=== PATIENT | female | born 1955 | race Caucasian/White ===

== ENCOUNTER 2023-05-14 15:00 | Outpatient (CLI) | payer MEDICARE, OTHER | END 2023-05-14 23:59 | disposition home or self-care (01) | LOC: LAB.S 15:00 | PROVIDERS: ATTEND Nurse Practitioner | DX: N39.0 Urinary tract infection, site not specified (principal) | CPT/HCPCS: 87086 ==

== ENCOUNTER 2023-06-04 10:56 | Outpatient (CLI) | payer MEDICARE, OTHER ==
[2023-06-04 15:13] LABS: BASOPHILS # (AUTO) 0.1 10^3/uL (0.0-0.1); BASOPHILS % (AUTO) 0.9 %; EOSINOPHILS # (AUTO) 0.3 10^3/uL (0.0-0.7); EOSINOPHILS % (AUTO) 4.4 %; HCT - HEMATOCRIT 41.3 % (37.0-47.0); HGB - HEMOGLOBIN 12.9 g/dL (12.0-16.0); LYMPHOCYTES # (AUTO) 1.7 10^3/uL (1.5-3.5); MEAN CORPUSCULAR HEMOGLOBIN 28.9 pg (27.0-31.0); MEAN CORPUSCULAR HGB CONC 31.2 g/dL (32.0-36.0); MEAN CORPUSCULAR VOLUME 92.4 fL (81.0-99.0); MEAN PLATELET VOLUME 10.6 fL (7.9-10.8); MONOCYTES # (AUTO) 0.5 10^3/uL (0.0-1.0); MONOCYTES % (AUTO) 7.1 %; NEUTROPHILS # (AUTO) 4.5 10^3/uL (1.5-6.6); NEUTROPHILS % (AUTO) 63.5 %; PLT - PLATELET COUNT 246 10^3/uL (130-450); RED BLOOD COUNT 4.47 10^6/uL (4.20-5.40); RED CELL DISTRIBUTION WIDTH 13.4 % (12.0-15.0)
[2023-06-04 15:24] LABS: ALBUMIN 4.3 g/dL (3.2-5.5); ALBUMIN/GLOBULIN RATIO 1.5 (1.0-2.2); ALKALINE PHOSPHATASE 66 IU/L (42-121); ALT ALANINE AMINOTRANSFERASE 20 IU/L (10-60); AST ASPARTATE AMINOTRANSFERASE 18 IU/L (10-42); BILIRUBIN,TOTAL 0.5 mg/dL (0.2-1.0); BUN - BLOOD UREA NITROGEN 19 mg/dL (6-20); CALCIUM 9.8 mg/dL (8.5-10.3); CARBON DIOXIDE - CO2 29 mmol/L (21-32); CHLORIDE 106 mmol/L (101-111); CHOL/HDL RATIO 3.2 (<4.4); CHOLESTEROL 204 mg/dL; CREATININE 0.7 mg/dL (0.6-1.3); GFR - MDRD 83 (>89); GLUCOSE 100 mg/dL (74-104); HDL CHOLESTEROL 63 mg/dL; LDL CHOLESTEROL,CALCULATED 118 mg/dL; LDL/HDL RATIO 1.9 (<4.4); POTASSIUM 4.2 mmol/L (3.5-4.5); SODIUM 140 mmol/L (135-145); TOTAL PROTEIN 7.1 g/dL (6.4-8.9); TRIGLYCERIDES 114 mg/dL (48-352); VLDL CHOLESTEROL 23 mg/dL
[2023-06-04 15:31] LABS: THYROID STIMULATING HORMONE 1.61 uIU/mL (0.34-5.60)
[2023-06-04 18:22] LABS: ESTIMATED AVERAGE GLUCOSE 108 mg/dL (70-100); HEMOGLOBIN A1c% 5.4 % (4.27-6.07)
== END 2023-06-04 10:57 | disposition home or self-care (01) ==
LOC: LAB.S 10:56
PROVIDERS: ATTEND Physician Assistant Medical
DX: E78.00 Pure hypercholesterolemia, unspecified (principal); Z13.9 Encounter for screening, unspecified
CPT/HCPCS: 36415; 80053; 80061; 83036; 83721; 84443; 85025

== ENCOUNTER 2023-06-22 13:44 | Outpatient (CLI) | payer MEDICARE, OTHER ==
--- NOTE | 2023-06-25 11:10 | CT Report ---
PROCEDURE: Lung Cancer Screen INDICATIONS: SMOKER TECHNIQUE: A CT scan of the chest was performed. Intravenous contrast media was not administered. Images were re corded and evaluated at appropriate window settings. Reformats: axial MIP of the chest, coronal and s agittal. For radiation dose reduction, the following was used: automated exposure control, adjustment of mA and/or kV according to patient size. COMPARISON: None. FINDINGS: Image quality: Excellent. Prior cancer history: Unknown Lungs and pleura: No pleural effusions. No pneumothorax. There is a single linear subpleural nodule in the right middle lobe measuring 5 mm, 3/149. No other suspicious nodules, masses, or consolidation s. Moderate central bilateral bronchial wall thickening and airway narrowing. Mediastinum: Heart size is mildly enlarged with mild to moderate coronary artery calcification. No pe ricardial effusion. No large vessel abnormality. No mediastinal adenopathy by size criteria. No ante rior or posterior mediastinal mass. Normal esophagus without hiatal hernia Chest wall and lower neck: Thyroid is unremarkable. No axillary or supraclavicular adenopathy by size . Bones: No aggressive osseous abnormality. Upper Abdomen: Unremarkable. IMPRESSION: Lung RAD: 2 - Benign. Recommendation: Continue annual screening in 12 Months with LDCT Non-Lung Significant Findings: None. Bronchial wall thickening and airway narrowing suggesting chronic bronchitis. Reviewed by: Alyse Koch MD on 06/25/2023 11:09 AM PST Approved by: Alyse Koch MD on 06/25/2023 11:09 AM PST Station ID: [id number]
== END 2023-06-22 13:45 | disposition home or self-care (01) ==
LOC: DI 13:44
PROVIDERS: ATTEND Physician Assistant Medical
DX: Z12.2 Encounter for screening for malignant neoplasm of respiratory organs (principal); F17.210 Nicotine dependence, cigarettes, uncomplicated; R91.1 Solitary pulmonary nodule; R91.8 Other nonspecific abnormal finding of lung field

== ENCOUNTER 2023-06-22 13:46 | Outpatient (CLI) | payer MEDICARE, OTHER ==
[2023-06-22] MEDS ORDERED: iohexoL-300 100 ML VIAL IVP ONE (16:44)
--- NOTE | 2023-06-25 11:17 | CT Report ---
PROCEDURE: Abdomen/Pelvis W INDICATIONS: GASTROINTESTINAL STROMAL TUMOR CONTRAST: Omni 300 100ml TECHNIQUE: After the administration of intravenous contrast, a CT scan of the abdomen and pelvis was performed. Images were recorded and evaluated at appropriate window settings. Reformats: coronal and sagittal. F or radiation dose reduction, the following was used: automated exposure control, adjustment of mA and /or kV according to patient size. COMPARISON: None. FINDINGS: Image quality: Excellent. Lung bases and heart: Dictated separately Liver: Mild hepatic steatosis. No solid mass. Gallbladder and biliary tree: decompressed gallbladder. Nondilated biliary tree. Spleen: No splenomegaly. Pancreas: No pancreatic ductal dilation. Adrenals: No adrenal nodule. Kidneys and ureters: Symmetric enhancement. There is an indeterminant cystic lesion anteriorly in the midpole right kidney and a simple appearing cyst arising from the upper pole. No nephrolithiasis or hydronephrosis. Bowel and peritoneum: Stomach and small bowel loops are predominantly decompressed. There is an anast omosis in the left lower quadrant. Extensive colonic diverticulosis from the mid transverse through s igmoid colon. No suspicious wall thickening. Lymph nodes: No central or retroperitoneal adenopathy. Vessels: No infrarenal aortic aneurysm. PELVIS Reproductive organs: The anteverted uterus has a normal CT appearance. Ovaries are not well seen on C T. Bladder: No abnormal wall thickening, accounting for underdistention. Pelvic lymph nodes: There are several bilateral borderline pelvic sidewall and external iliac chain l ymph nodes, all of which maintain normal fatty elizabeth. No bulky or rounded adenopathy. Bones: No aggressive osseous abnormality. Other: No significant ventral or inguinal hernia. IMPRESSION: 1. Left abdominal small bowel anastomosis, presumably site of tumor resection. 2. No evidence of metastatic disease seen in the abdomen or pelvis. 3. Borderline bilateral pelvic lymph nodes, most likely reactive. Recommend attention on follow-up. 4. Incidental note of extensive colonic diverticulosis. 5. Indeterminant right mid pole renal cyst. Consider renal protocol CT or MRI for further characteriz ation. Reviewed by: Alyse Koch MD on 06/25/2023 11:16 AM PST Approved by: Alyse Koch MD on 06/25/2023 11:16 AM PST Station ID: [id number]
== END 2023-06-22 13:47 | disposition home or self-care (01) ==
LOC: DI 13:46
PROVIDERS: ATTEND Internal Medicine
DX: C49.A3 Gastrointestinal stromal tumor of small intestine (principal); N28.1 Cyst of kidney, acquired; Z12.2 Encounter for screening for malignant neoplasm of respiratory organs; F17.210 Nicotine dependence, cigarettes, uncomplicated; R91.1 Solitary pulmonary nodule; R91.8 Other nonspecific abnormal finding of lung field
CPT/HCPCS: 71271; 74177; Q9967

== ENCOUNTER 2023-08-03 11:00 | Outpatient (CLI) | payer MEDICARE, OTHER ==
[2023-08-03 11:25] LABS: CREATININE 0.7 mg/dL (0.6-1.3)
[2023-08-03] MEDS: iohexoL-300 100 ML VIAL IVP ONE (12:16)
--- NOTE | 2023-08-03 16:51 | CT Report ---
PROCEDURE: Abdomen W/WO INDICATIONS: RIGHT RENAL CYST CONTRAST: 140ml omni 300 TECHNIQUE: After the administration of intravenous contrast, 5 mm thick sections acquired from the diaphragm to the symphysis. 5 mm coronal and sagittal reformats were acquired. For radiation dose reduction, the following was used: automated exposure control, adjustment of mA and/or kV according to patient siz e. COMPARISON: CT 06/22/2023 FINDINGS: Image quality: Excellent. Genitourinary: There is a cortical medullary, partially exophytic cyst in the anterior mid to lower pole of the right kidney with a few fine linear peripheral calcifications measuring 2.6 x 3.7 x 2.9 c m. Precontrast Hounsfield units are less than 10. No significant enhancement on the arterial phase of contrast. Mild enhancement seen on the delayed phase. 3.4 cm simple cyst arises from the upper pole of the right kidney. No enhancement. The left kidney is normal without cyst or solid mass. OTHER: Lung bases and heart: Unremarkable. Liver: Mild steatosis. No enhancing mass. Gallbladder and biliary tree: Normal gallbladder without calcifications. Nondilated biliary tree. Spleen: No splenomegaly. Pancreas: No pancreatic ductal dilation. Adrenals: No adrenal nodule. Bowel and peritoneum: The decompressed stomach and small bowel loops. Colonic diverticula present. Le ft abdominal small bowel anastomosis. No intraperitoneal inflammation or free fluid. Lymph nodes: No central or retroperitoneal adenopathy. Vessels: No infrarenal aortic aneurysm. Bones: No aggressive osseous abnormality. Other: No significant ventral hernia. IMPRESSION: 3.7 cm anterior mid to lower pole right renal cyst, Bosniak II equivalent. 3.4 cm simple right upper pole renal cyst. No follow-up recommended. Reviewed by: Alyse Koch MD on 08/03/2023 4:49 PM PST Approved by: Alyse Koch MD on 08/03/2023 4:49 PM PST Station ID: [id number]
== END 2023-08-03 11:01 | disposition home or self-care (01) ==
LOC: LAB 11:00
PROVIDERS: ATTEND Physician Assistant Medical
DX: N28.1 Cyst of kidney, acquired (principal)
CPT/HCPCS: 36415; 82565

== ENCOUNTER 2023-08-03 11:02 | Outpatient (CLI) | payer MEDICARE, OTHER ==
[2023-08-03] MEDS ORDERED: iohexoL-300 100 ML VIAL ONE (11:29)
--- NOTE | 2023-08-06 10:32 | Ultrasound Report ---
LIMITED ULTRASOUND OF RIGHT BREAST: 08/03/2023 CLINICAL: Patient returns today to evaluate a focal asymmetry in the right breast. Comparison is made to exams dated: 08/03/2023 mammogram - [facility], 04/20/2021 lora mogram, 04/05/2021 mammogram, 08/12/2018 ultrasound biopsy, 07/31/2018 ultrasound, and 07/31/2018 mammog [facility]. Color flow ultrasound of the right breast 10 o'clock and 12 o'clock regions was performed. Keane scal e images of the real-time examination were reviewed. There are multiple oval cysts in the right breast central to the nipple anterior depth. These oval c ysts are anechoic. These correlate with mammography findings. Color flow imaging demonstrates that there is no vascularity present. There also is a 1.7 cm x 0.6 cm x 1.2 cm wider than tall oval cyst in the right breast at 10 o'clock anterior depth 5 cm from the nipple. This oval cyst is anechoic. This correlates with new mammograp hy finding noted in this region. Color flow imaging demonstrates that there is no vascularity presen t. IMPRESSION: BENIGN There is no sonographic evidence of malignancy. The multiple oval cysts in the right breast central to the nipple anterior depth are consistent with simple cysts and are benign. The 1.7 cm x 0.6 cm x 1.2 cm wider than tall oval simple cyst in the right breast at 10 o'clock anter ior depth is benign. A 1 year screening mammogram is recommended. Findings and recommendations were conveyed to the patient during today's evaluation. This exam was interpreted at Station ID: [id number]. Electronically Signed By: Jose Luis Ann M.D. aty/:08/03/2023 14:08:18 Ultrasound BI-RADS: 2 Benign BI-RADS CATEGORY: (2) - 2 Mammogram [id number] 1 year screening LATERALITY: (B)
--- NOTE | 2023-08-06 10:32 | Mammography Report ---
BILATERAL DIGITAL DIAGNOSTIC MAMMOGRAM 3D/2D: 08/03/2023 CLINICAL: Patient returns for a 6 month follow up of bilateral breasts. Comparison is made to exams dated: 04/20/2021 mammogram, 04/05/2021 mammogram, 07/31/2018 mammogram, a nd 04/05/2018 mammogram - [facility] [place]. Both breasts are almost entirely fatty (category a/<25% glandular tissue). There are multiple oval equal density focal asymmetries in the right breast central to the nipple ant erior depth. These are not significantly changed. There also is a new oval equal density focal asymmetry in the right breast at 10 o'clock anterior dep th. There are stable grouped coarse dystrophic calcifications in the left breast at 6 o'clock middle dept h. No other significant masses or calcifications are seen in either breast. IMPRESSION: INCOMPLETE: NEEDS ADDITIONAL IMAGING EVALUATION The multiple oval equal density focal asymmetries in the right breast central to the nipple anterior depth resemble clustered cysts and are indeterminate. An ultrasound is recommended for further evalua tion and is scheduled to immediately follow this examination. The new oval equal density focal asymmetry in the right breast at 10 o'clock anterior depth resembles a cyst and is indeterminate. An ultrasound is recommended for further evaluation and is scheduled t o immediately follow this examination. Based on the Tyrer Cuzick model (a risk assessment model) the patient's lifetime risk is 3.6% and her 10 year risk is 2.0%. According to the ACR, ACS, and NCCN guidelines, an annual breast MRI exam luis carlos g with mammogram is recommended if the patient's lifetime risk is 20% or greater. This exam was interpreted at Station ID: [id number]. NOTE: For mammograms, a report in lay terms will be sent to the patient. Approximately 15% of breast malignancies will not be visualized mammographically. In the management of a palpable breast mass, a negative mammogram must not discourage biopsy of a clinically suspicious lesion. Electronically Signed By: Jose Luis Ann M.D. aty/:08/03/2023 14:04:58 ACR BI-RADS Category 0: Incomplete 3340F PARENCHYMAL PATTERN: (F) - The breast(s) demonstrate(s) diffuse fatty replacement. BI-RADS CATEGORY: (0) - 0 Ultrasound [id number] Immediate follow-up LATERALITY: (R)
== END 2023-08-03 11:03 | disposition home or self-care (01) ==
LOC: DI 11:02
PROVIDERS: ATTEND Physician Assistant Medical
DX: N60.11 Diffuse cystic mastopathy of right breast (principal)
CPT/HCPCS: 76642; 77066; Q9967

== ENCOUNTER 2023-08-24 14:56 | Outpatient (CLI) | payer MEDICARE, OTHER ==
[2023-08-24 20:09] LABS: BILIRUBIN,URINE NEGATIVE (NEGATIVE); GLUCOSE, URINE (UA) NEGATIVE (NEGATIVE); KETONES,URINE (UA) NEGATIVE (NEGATIVE); LEUKOCYTE ESTERASE, URINE SMALL (NEGATIVE); NITRITE,URINE NEGATIVE (NEGATIVE); OCCULT BLOOD,URINE NEGATIVE (NEGATIVE); PH,URINE 5.5 PH (5.0-7.5); PROTEIN,URINE NEGATIVE (NEGATIVE); UROBILINOGEN,URINE 0.2 (NORMAL) E.U./dL (NORMAL)
[2023-08-24 20:22] LABS: BACTERIA,URINE Rare /HPF (None Seen); CLARITY,URINE CLEAR (CLEAR); RBC,URINE 0-5 /HPF (0-5); SQUAMOUS EPITHELIAL CELL,UR MOD Squamous (<= Few)
== END 2023-08-24 14:57 | disposition home or self-care (01) ==
LOC: LAB.S 14:56
PROVIDERS: ATTEND Physician Assistant Medical
DX: R10.9 Unspecified abdominal pain (principal)
CPT/HCPCS: 81001; 87086